=== PATIENT | female | born 1930 | race Caucasian/White ===

== ENCOUNTER → 2017-08-22 | Outpatient (CLI) | payer MEDICARE, OTHER | LOC: GOCC 18:59 | PROVIDERS: ATTEND Internal Medicine | DX: R30.0 Dysuria (principal) ==

== ENCOUNTER 2017-08-23 17:13 | Emergency (ER) | payer MEDICARE, MEDICAID ==
--- NOTE | 2017-08-23 17:19 | ED.PDOC ---
History of Present Illness - General Chief Complaint: Allergic Reaction Stated Complaint: poss allergic reaction Time Seen by Provider: 08/23/17 17:17 Source: patient, RN notes reviewed, Vital Signs reviewed, EMS notes reviewed Exam Limitations: no limitations Additional Information: Pt sent from [facility] due to c/o possible allergic reaction. Per [facility] nurse, Pt c/o tongue "felt like water and felt swollen and peeling off". Nurse also states Pt went through a period of poor responsiveness and not making sense. Nurse was concerned this was due to Macrobid Abx patient was started on yesterday. - History of Present Illness Timing/Duration: 1-3 hours - PLAYGROUND AIDE Improving Factors: nothing Worsening Factors: nothing Allergies/Adverse Reactions: Allergies Chlorine Allergy (Verified 08/23/17 17:23) Flu Virus Vaccine [From Fluvirin] Allergy (Verified 08/23/17 17:23) Penicillins Allergy (Verified 08/23/17 17:23) Thimerosal [From Fluvirin] Allergy (Verified 08/23/17 17:23) Home Medications: Ambulatory Orders Atenolol [Tenormin] 50 mg PO DAILY 08/23/17 Desvenlafaxine Succinate [Pristiq] 100 mg PO BEDTIME 08/23/17 Hydrochlorothiazide 25 mg PO DAILY 08/23/17 Levothyroxine Sodium [Synthroid] 100 mcg PO DAILY 08/23/17 Lovastatin 20 mg PO BEDTIME 08/23/17 Meloxicam 15 mg PO DAILY 08/23/17 Multiple Vitamins W/ Minerals [Multivitamin Adults] 1 tab PO DAILY 08/23/17 Naproxen Sodium 220 mg PO BID 08/23/17 Naproxen Sodium [Aleve] 220 mg PO PRN 08/23/17 Nitrofurantoin Monohydrate Mac [Macrobid] 100 mg PO BID 08/23/17 Omeprazole 20 mg PO DAILY 08/23/17 Potassium Chloride Microencaps [Klor-Con M10] 10 meq PO DAILY 08/23/17 Trazodone HCl 25 mg PO BEDTIME 08/23/17 guaiFENesin/DEXTROMETH SYRUP [Robitussin Dm] 5 - 10 ml PO PRN 08/23/17 Review of Systems - Review of Systems Constitutional: States: no symptoms reported EENTM: States: no symptoms reported Respiratory: States: no symptoms reported Cardiology: States: no symptoms reported Gastrointestinal/Abdominal: States: no symptoms reported Genitourinary: States: see HPI, dysuria Musculoskeletal: States: no symptoms reported Skin: States: no symptoms reported Neurological: States: see HPI - dementia Endocrine: States: no symptoms reported Hematologic/Lymphatic: States: no symptoms reported Family Medical History - Family History Mother Family History: Unknown Living Status: Physical Exam - Physical Exam General Appearance: Comfortable, Frail, No apparent distress - at rest. Pt only complains when her BP cuff inflates. 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 Lab results reviewed with patient and her daughter. No need to continue macrobid. Patient stable for discharge back to [facility]. - Results/Orders Results/Orders: 08/23/17 17:30 CARDIAC ENZYME GROUP Stat CMP [COMPLETE METABOLIC PROFILE] Stat EKG STAT 08/23/17 17:40 TSH [THYROID STIMULATING HORMONE] Stat Laboratory Results - last 24 hr 08/23/17 08/23/17 17:30 17:30 WBC 8.1 RBC 4.59 Hgb 14.2 Hct 41.6 MCV 90.6 MCH 30.9 MCHC 34.1 RDW 13.8 Plt Count 143 MPV 8.6 Absolute Neuts (auto) 5.40 Absolute Lymphs (auto) 2.10 Absolute Monos (auto) 0.60 Absolute Eos (auto) 0.00 Absolute Basos (auto) 0.00 Neutrophils % 66.3 Lymphocytes % 26.3 Monocytes % 6.9 Eosinophils % 0.1 L Basophils % 0.4 Sodium 140 Potassium 3.7 Chloride 104 Carbon Dioxide 25 Anion Gap 14.7 BUN 23 H Creatinine 1.11 BUN/Creatinine Ratio 20.7 H Random Glucose 117 H Serum Osmolality 284.1 Calcium 10.4 H Total Bilirubin 0.8 AST 44 H ALT 28 Alkaline Phosphatase 224 H Creatine Kinase 220 H* CK-MB (CK-2) 3.3 Troponin I < 0.02 Serum Total Protein 7.5 Albumin 3.8 Globulin 3.7 H Albumin/Globulin Ratio 1.0 L 08/23/17 08/23/17 17:24 18:46 Temperature 99.1 F Pulse Rate [ 74 71 Right Radial] Respiratory 20 20 Rate Blood Pressure 143/97 197/104 [Left Arm] O2 Sat by Pulse 96 97 Oximetry Departure - Departure Clinical Impression: Poor historian, Dysuria, Serum calcium elevated, Alkaline phosphatase elevation Dementia Qualifiers: Dementia type: unspecified type Dementia behavioral disturbance: without behavioral disturbance Qualified Code(s): F03.90 - Unspecified dementia without behavioral disturbance Time of Disposition: 19:58 Disposition: Discharge to SNF Condition: Fair Departure Forms: ED Discharge - Pt. Copy, Patient Portal Self Enrollment Referrals: Say Wu MD [Primary Care Provider] - 1-2 Weeks Home Medications: Ambulatory Orders Atenolol [Tenormin] 50 mg PO DAILY 08/23/17 Desvenlafaxine Succinate [Pristiq] 100 mg PO BEDTIME 08/23/17 Hydrochlorothiazide 25 mg PO DAILY 08/23/17 Levothyroxine Sodium [Synthroid] 100 mcg PO DAILY 08/23/17 Lovastatin 20 mg PO BEDTIME 08/23/17 Meloxicam 15 mg PO DAILY 08/23/17 Multiple Vitamins W/ Minerals [Multivitamin Adults] 1 tab PO DAILY 08/23/17 Naproxen Sodium 220 mg PO BID 08/23/17 Naproxen Sodium [Aleve] 220 mg PO PRN 08/23/17 Nitrofurantoin Monohydrate Mac [Macrobid] 100 mg PO BID 08/23/17 Omeprazole 20 mg PO DAILY 08/23/17 Potassium Chloride Microencaps [Klor-Con M10] 10 meq PO DAILY 08/23/17 Trazodone HCl 25 mg PO BEDTIME 08/23/17 guaiFENesin/DEXTROMETH SYRUP [Robitussin Dm] 5 - 10 ml PO PRN 08/23/17 Additional Instructions: Stop Macrobid. Follow-up with Primary Care Provider for ongoing assessment of burning sensation in groin/with urination as well as a need for repeat bloodwork and routine health and wellness evaluation. Stay well hydrated with at least 1.5 liters of water daily.
[2017-08-23 17:25] VITALS: TEMP 99.1
[2017-08-23 20:47] VITALS: BP 154/88; O2SAT 98
== END 2017-08-23 20:30 ==
LOC: ER 17:13
DX: F03.90 Unspecified dementia, unspecified severity, without behavioral disturbance, psychotic disturbance, mood disturbance, and anxiety (principal); R30.0 Dysuria; R79.89 Other specified abnormal findings of blood chemistry

== ENCOUNTER 2018-03-11 12:01 | Emergency (ER) | payer MEDICARE, MEDICAID ==
--- NOTE | 2018-03-11 12:45 | RAD ---
Procedure: XR CHEST 1 VIEW Exam Date: 03/11/2018 12:21 PM CDT Ordering Provider: Antonio Burnham Clinical Indication: ams, rales Comparison: None Findings: Mild bibasilar subsegmental atelectasis. No pleural effusion or pneumothorax. The heart size is upper limits of normal. Bones are intact. Impression: Cardiomegaly and bibasilar atelectasis. Electronically signed by: Angela Valencia MD 03/11/2018 12:44 PM CDT
--- NOTE | 2018-03-11 13:26 | CT ---
Procedure: CT HEAD WITHOUT IV CONTRAST, CT ORBITS WITHOUT IV CONTRAST Exam Date: 03/11/2018 12:20 PM CDT Ordering Provider: Antonio Burnham Clinical Indication: ams, left periorbital cellulitis Comparison: None Technique: CT images of the head were obtained without contrast administration. High-resolution imaging through the orbits was also performed. Coronal and sagittal reformats were obtained. This exam was performed according to our departmental dose-optimization program which includes automated exposure control, adjustment of the mA and/or kV according to patient size and/or use of iterative reconstruction technique. Findings: There is no acute cortical infarction, hemorrhage, midline shift, mass effect, or hydrocephalus. Patchy and confluent areas of diminished attenuation are seen involving the subcortical and periventricular white matter, presumable related to small vessel occlusive disease. Global parenchymal volume loss is present. There is extensive left frontal scalp contusion. Prominent left preseptal/periorbital and premalar soft tissue swelling is also noted without a focal hematoma or fluid collection. Bilateral globes maintain the morphologic appearance. There is no significant retrobulbar hematoma. The skull base and calvaria appear to be grossly intact. The paranasal sinuses and mastoid air cells are well aerated.. Impression: No acute intracranial traumatic injury. Senescent changes. Extensive left facial, preseptal/periorbital and left frontal soft tissue swelling. No adjacent fracture. Electronically signed by: Angela Valencia MD 03/11/2018 1:25 PM CDT
[2018-03-11] MEDS ORDERED: VANCOMYCIN HCL INJ 1,000 MG, VANCOMYCIN HCL INJ 500 MG in SODIUM CHLORIDE 0.9% 250ML 25... IVPB ONE (13:29)
[2018-03-11] MEDS ORDERED: SODIUM CHLORIDE 0.9% 250ML 250 ML ONE ×2 (13:50→15:58)
[2018-03-11] MEDS ORDERED: VANCOMYCIN HCL INJ 1,000 MG VIAL IVPB ONE (13:50)
[2018-03-11] MEDS ORDERED: VANCOMYCIN HCL INJ 500 MG VIAL ONE (13:50)
[2018-03-11] MEDS ORDERED: cefTRIAXone SODIUM 2 GM in SODIUM CHL 0.9% 50ML MIN-BAG+ 50 ML IVPB ONE (14:21)
[2018-03-11] MEDS ORDERED: ACYCLOVIR SODIUM INJECTION 1,000 MG in SODIUM CHLORIDE 0.9% 250ML 250 ML IVPB ONE (14:21)
--- NOTE | 2018-03-11 14:52 | ED.PDOC ---
History of Present Illness - General Chief Complaint: Neuro Symptoms/Deficits Stated Complaint: altered mental status Time Seen by Provider: 03/11/18 12:19 Source: patient, family, [facility] records Exam Limitations: clinical condition - History of Present Illness Initial Comments: pt here with dementia and facial cellutitis of 3 days duration worsening inspite of treatment for dx of shingles. increased eye pain on left with eyelids swollen shut. honey colored drainage from skin. no obvious abscess at this time. cellulitis extends from left of midline crown of scalp down and forward to her cheeks. unable to open her eye voluntarily. increased confusion but does have dementia. no difficulty with moving neck. alert adn answers simple questions. eomi appear to be intact. no obvious proptosis. very painful to open here eyelids adn am unable to do so long enough for a flourescin exam but light is very painful to her and vision is blurry and she is having pain in her left eye. Allergies/Adverse Reactions: Allergies Chlorine Allergy (Verified 03/11/18 12:27) Eggs or Egg-derived Products Allergy (Verified 03/11/18 12:27) Flu Virus Vaccine [From Fluvirin] Allergy (Verified 03/11/18 12:27) Nitrofurantoin [From Macrobid] Allergy (Verified 03/11/18 12:27) Penicillins Allergy (Verified 03/11/18 12:27) Thimerosal [From Fluvirin] Allergy (Verified 03/11/18 12:27) Home Medications: Ambulatory Orders Atenolol [Tenormin] 50 mg PO DAILY 08/23/17 Desvenlafaxine Succinate [Pristiq] 100 mg PO BEDTIME 08/23/17 Hydrochlorothiazide 25 mg PO DAILY 08/23/17 Levothyroxine Sodium [Synthroid] 100 mcg PO DAILY 08/23/17 Lovastatin 20 mg PO BEDTIME 08/23/17 Meloxicam 15 mg PO DAILY 08/23/17 Multiple Vitamins W/ Minerals [Multivitamin Adults] 1 tab PO DAILY 08/23/17 Naproxen Sodium 220 mg PO BID 08/23/17 Naproxen Sodium [Aleve] 220 mg PO PRN 08/23/17 Nitrofurantoin Monohydrate Mac [Macrobid] 100 mg PO BID 08/23/17 Omeprazole 20 mg PO DAILY 08/23/17 Potassium Chloride Microencaps [Klor-Con M10] 10 meq PO DAILY 08/23/17 Trazodone HCl 25 mg PO BEDTIME 08/23/17 guaiFENesin/DEXTROMETH SYRUP [Robitussin Dm] 5 - 10 ml PO PRN 08/23/17 Review of Systems - Review of Systems Constitutional: States: malaise, weakness EENTM: States: see HPI, eye pain, blurred vision, tearing Respiratory: States: no symptoms reported Cardiology: States: no symptoms reported Gastrointestinal/Abdominal: States: no symptoms reported Genitourinary: States: no symptoms reported Musculoskeletal: States: no symptoms reported Skin: States: no symptoms reported Neurological: States: other - increased confusion. Hematologic/Lymphatic: States: no symptoms reported All other Systems: No Change from Baseline Past Medical History (General) - Patient Medical History Hx Dementia: Yes - Alzheimer's Hx Congestive Heart Failure: No Hx Hypertension: Yes Hx Thyroid Disease: Yes - hypothyroid Hx Diabetes: No Hx Gastroesophageal Reflux: Yes - Vaccination History Hx Influenza Vaccination: No - allergy to eggs Hx Pneumococcal Vaccination: - unknown - Social History Hx Tobacco Use: No Hx Depression: Yes - Anxiety/depression Family Medical History - Family History Mother Family History: Unknown Living Status: Physical Exam - Physical Exam General Appearance: Alert, Ill Appearing Eye Exam: right normal, left other - see hpi Ears, Nose, Throat: hearing grossly normal - chronically decreased bilat Neck: supple, normal inspection Respiratory: chest non-tender, no respiratory distress, no accessory muscle use , other - chronic mild bilat basilar rales. Cardiovascular/Chest: normal peripheral pulses, no edema, other - reg rate Peripheral Pulses: radial,right: 2+, radial,left: 2+, dorsalis pedis,right: 2+, dorsalis pedis,left: 2+ Gastrointestinal/Abdominal: non tender, soft Rectal Exam: deferred Back Exam: no CVA tenderness, no vertebral tenderness Extremity: non-tender, no calf tenderness, normal capillary refill Neurologic: no motor/sensory deficits, alert, other - recognized her daughter and answers very simple questions. Skin Exam: rash - see hpi. cellulitis of scalp and left face with drainage. Comments: Vital Signs - 8 hr 03/11/18 03/11/18 12:05 13:09 Temperature 98.8 F Pulse Rate [ 69 69 pulse ox] Respiratory 20 20 Rate Blood Pressure 140/82 154/79 [Left Arm] O2 Sat by Pulse 97 93 L Oximetry Progress - Progress Progress: 03/11/18 14:57 pt here with dementia with significant scalp and facial cellulitis due to either shingles, impetigo or both at this point. complicating is her left eye involvement. referring for further treatment and directed optho eval. received dose of vancomycin, rocephin and acyclovir. blood culture taken. will need testing for hsv/vzv at receiving facility for much more rapid lab turn around. transferring for specialty care. - Results/Orders Results/Orders: ct head and orbits fail to show any abscess or retroorbital patholgy that is acute adn no acute intracranial pathology. significant cellulitis seen as anticipatied. 03/11/18 12:30 EKG STAT nsr at 70bpm, LAD, lbbb 03/11/18 12:50 BLOOD CULTURE Stat Laboratory Results - last 24 hr 03/11/18 03/11/18 03/11/18 12:50 12:50 12:50 WBC 4.0 L RBC 4.37 Hgb 13.3 Hct 39.0 MCV 89.3 MCH 30.4 MCHC 34.0 RDW 14.4 Plt Count 78 L MPV 8.6 Absolute Neuts (auto) 3.20 Absolute Lymphs (auto) 0.60 L Absolute Monos (auto) 0.20 Absolute Eos (auto) 0.00 Absolute Basos (auto) 0.00 Neutrophils % 80.2 H Lymphocytes % 14.1 L Monocytes % 5.6 Eosinophils % 0.0 L Basophils % 0.1 PT 12.9 H INR 1.110 PTT (SP) 32.4 Sodium 133 L Potassium 3.9 Chloride 96 L Carbon Dioxide 27 Anion Gap 13.9 BUN 23 H Creatinine 1.21 BUN/Creatinine Ratio 19.0 Random Glucose 148 H Serum Osmolality 272.8 L Lactic Acid Calcium 10.0 Magnesium Total Bilirubin 0.9 AST 35 ALT 29 Alkaline Phosphatase 221 H Serum Total Protein 7.3 Albumin 3.7 Globulin 3.6 H Albumin/Globulin Ratio 1.0 L 03/11/18 03/11/18 12:50 12:50 WBC RBC Hgb Hct MCV MCH MCHC RDW Plt Count MPV Absolute Neuts (auto) Absolute Lymphs (auto) Absolute Monos (auto) Absolute Eos (auto) Absolute Basos (auto) Neutrophils % Lymphocytes % Monocytes % Eosinophils % Basophils % PT INR PTT (SP) Sodium Potassium Chloride Carbon Dioxide Anion Gap BUN Creatinine BUN/Creatinine Ratio Random Glucose Serum Osmolality Lactic Acid 1.3 Calcium Magnesium 1.6 L Total Bilirubin AST ALT Alkaline Phosphatase Serum Total Protein Albumin Globulin Albumin/Globulin Ratio Departure - Departure Clinical Impression: Facial cellulitis, Herpes zoster conjunctivitis of left eye Disposition: Transfer to Hospital Referrals: Say Wu MD [Primary Care Provider] - 1-2 Weeks Home Medications: Ambulatory Orders Atenolol [Tenormin] 50 mg PO DAILY 08/23/17 Desvenlafaxine Succinate [Pristiq] 100 mg PO BEDTIME 08/23/17 Hydrochlorothiazide 25 mg PO DAILY 08/23/17 Levothyroxine Sodium [Synthroid] 100 mcg PO DAILY 08/23/17 Lovastatin 20 mg PO BEDTIME 08/23/17 Meloxicam 15 mg PO DAILY 08/23/17 Multiple Vitamins W/ Minerals [Multivitamin Adults] 1 tab PO DAILY 08/23/17 Naproxen Sodium 220 mg PO BID 08/23/17 Naproxen Sodium [Aleve] 220 mg PO PRN 08/23/17 Nitrofurantoin Monohydrate Mac [Macrobid] 100 mg PO BID 08/23/17 Omeprazole 20 mg PO DAILY 08/23/17 Potassium Chloride Microencaps [Klor-Con M10] 10 meq PO DAILY 08/23/17 Trazodone HCl 25 mg PO BEDTIME 08/23/17 guaiFENesin/DEXTROMETH SYRUP [Robitussin Dm] 5 - 10 ml PO PRN 08/23/17 Transfer to Outside Facility - Transfer Information Accepting Provider:: dr [email or web address] Accepting Facility: [facility] Reason for Transfer: required specialist not available
[2018-03-11] MEDS ORDERED: SODIUM CHL 0.9% 50ML MIN-BAG+ 50 ML IVPB ONE (15:53)
[2018-03-11] MEDS ORDERED: cefTRIAXone SODIUM 1 GM VIAL ONE (15:53)
[2018-03-11] MEDS ORDERED: ACYCLOVIR SODIUM INJECTION 500 MG VIAL ONE (15:59)
[2018-03-11 16:40] VITALS: BP 162/85; O2SAT 94
[2018-03-11 16:55] VITALS: TEMP 98.9
== END 2018-03-11 16:45 | disposition short-term general hospital (02) ==
LOC: ER 12:01
DX: L03.211 Cellulitis of face (principal); B02.31 Zoster conjunctivitis; L03.811 Cellulitis of head [any part, except face]; E03.9 Hypothyroidism, unspecified; G30.9 Alzheimer's disease, unspecified; F02.80 Dementia in other diseases classified elsewhere, unspecified severity, without behavioral disturbance, psychotic disturbance, mood disturbance, and anxiety; K21.9 Gastro-esophageal reflux disease without esophagitis; F41.8 Other specified anxiety disorders; I10 Essential (primary) hypertension; R53.1 Weakness
CPT/HCPCS: 36415; 70450; 70480; 71045; 80053; 81001; 83605; 83735; 85025; 85610; 85730; 87040; 87086; 93005; J0133; J0696; J3370; J7050